=== PATIENT | female | born 1955 | race Caucasian/White ===

== ENCOUNTER 2018-02-09 13:00 | Emergency (ER) | payer BC ==
[2018-02-09 14:17] LABS: ABS Basophils 0 10^3/ul (0-0.2); ABS Eosinophils 0.1 10^3/ul (0-0.6); ABS Lymphocytes 1.3 10^3/ul (1.0-4.8); ABS Monocytes 0.3 10^3/ul (0-0.8); ABS Neutrophils 2.3 10^3/ul (1.5-7.7); ABS Nucleated RBC 0 10^3/ul; Eosinophil % 2.2 % (0-6); Hematocrit 41 % (35-47); Hemoglobin 13.7 g/dl (12.0-16.0); Lymphocyte % 31.7 % (25-47); Mean Corpuscular HGB Conc 34 g/dl (31-36); Mean Corpuscular Hemoglobin 29 pg (27-31); Mean Corpuscular Volume 86 fL (80-97); Mean Platelet Volume 9 um3 (7.4-10.4); Nucleated Red Blood Cells % 0.1; Platelet Count 249 10^3/ul (150-450); Red Blood Count 4.75 10^6/ul (4.0-5.4); Red Cell Distribution Width 14 % (10.5-15); White Blood Count 3.9 10^3/ul (3.5-10.8)
[2018-02-09 14:42] LABS: EGFR Non-African American 83.7 (>60)
[2018-02-09 15:23] LABS: Urine Appearance Clear; Urine Blood Negative (Negative); Urine Color Yellow; Urine Ketones Trace (Negative); Urine Protein Negative (Negative); Urine Specific Gravity 1.017 (1.010-1.030); Urine Urobilinogen Negative (Negative)
[2018-02-09] MEDS ORDERED: Iohexol 300* (CONTRAST) 10 ML SDV IV ONE (17:06)
--- NOTE | 2018-02-09 18:06 | RAD ---
INDICATION: Lower abdominal pain COMPARISON: CT abdomen and pelvis August 12, 2005 TECHNIQUE: Axial source images were obtained from the hemidiaphragms to the symphysis pubis following administration of oral and intravenous contrast. 89 mL Omnipaque 300 was utilized. Coronal and sagittal reconstructed images were acquired. Lung bases: The lung bases are clear. Liver: The liver is normal in size. There are no masses. There is no ductal dilatation. Gallbladder: There are no calcified gallstones. There is no evidence of wall thickening or pericholecystic fluid. Spleen: The spleen is normal in size. There are no masses. There is a splenule, unchanged Pancreas: There is no focal pancreatic mass or ductal dilatation. Adrenal glands: There is no evidence of adrenal mass. Kidneys: The kidneys are normal in size and position. There are prompt nephrograms and there is prompt excretion bilaterally. There are no renal parenchymal masses. There is no evidence of nephrolithiasis. Adenopathy: There is no evidence of adenopathy by size criteria. Fluid collections: There are no free or localized fluid collections. Vessels:There are no significant atherosclerotic changes involving the aorta. There is no focal aneurysm. The iliac vessels are normal in caliber. The IVC appears normal. GI tract: There is a moderate-sized hiatal hernia. The upper GI tract is otherwise unremarkable. There is stool in the rectal vault. There are no significant colonic findings. No inflammatory changes are appreciated. Pelvic organs: The uterus and adnexa appear normal Bladder: There are no bladder masses. Abdominal and pelvic soft tissues: The extraperitoneal abdominal and pelvic soft tissues appear normal.. Osseous structures: There are no acute osseous findings. Other: None IMPRESSION: MODERATE-SIZED HIATAL HERNIA. NO ACUTE CT FINDINGS. NO MASS OR INFLAMMATORY CHANGES
[2018-02-09 18:41] VITALS: BP 121/65
--- NOTE | 2018-02-14 13:57 | ED ---
Jessica Orlando Edward, scribed for Seng Gonzalez MD on 02/09/18 at 1336 . Abdominal Pain/Female - HPI Summary HPI Summary: 63 y/o female presents to the ED c/o severe ABD pain for several days. Pt c/o severely painful BM and loose and watery stools with mucous without blood starting 5 nights ago, the night of her colonoscopy. The pain is constant and gradually worsening. The pain is located in the lower ABD. Associated sx: urinary sx around 1 week ago, fevers and chills in the evening (up to 102 recently), fatigue. PMHx C-diff - last finished a 6 week abx for cdiff 5 days before her colonoscopy. Pt had a colonoscopy 5 days ago. Pt states her sx are similar to previous episodes of cdiff. - History of Current Complaint Chief Complaint: EDAbdPain Stated Complaint: DIARRHEA/PAINFUL BM Time Seen by Provider: 02/09/18 13:31 Hx Obtained From: Patient Onset/Duration: Lasting Days, Still Present Timing: Constant Pain Intensity: 8 Location: Other - lower ABD Aggravating Factor(s): Other: - bowel movement Alleviating Factor(s): Nothing Associated Signs and Symptoms: Positive: Fever - and chills, Urinary Symptoms, Diarrhea - loose stools, Other: - fatigue Allergies/Adverse Reactions: Allergies Allergy/AdvReac Type Severity Reaction Status Date / Time Penicillins Allergy Mild Rash Verified 02/09/18 14:33 PMH/Surg Hx/FS Hx/Imm Hx Previously Healthy: No Endocrine/Hematology History: Denies: Hx Anticoagulant Therapy, Hx Diabetes Infectious Disease History: No Infectious Disease History: Reports: Hx Clostridium Difficile Denies: Traveled Outside the [place] in Last 30 Days - Family History Known Family History: Positive: Unknown - Social History Substance Use Type: Reports: None Review of Systems Positive: Fever, Chills, Fatigue Negative: Erythema Negative: Sore Throat Negative: Chest Pain Negative: Shortness Of Breath, Cough Positive: Abdominal Pain, Diarrhea. Negative: Vomiting, Nausea Positive: other - urinary symptoms 1 week ago. Negative: dysuria, hematuria Negative: Myalgia, Edema Negative: Rash Neurological: Other - dizziness All Other Systems Reviewed And Are Negative: Yes Physical Exam - Summary Physical Exam Summary: Constitutional: Well-developed, Well-nourished, Alert. (-) Distressed Skin: Warm, Dry HENT: Normocephalic; Atraumatic Eyes: Conjunctiva normal Neck: Musculoskeletal ROM normal neck. (-) JVD, (-) Stridor, (-) Tracheal deviation Cardio: Rhythm regular, rate normal, Heart sounds normal; Intact distal pulses; The pedal pulses are 2+ and symmetric. Radial pulses are 2+ and symmetric. (-) Murmur Pulmonary/Chest wall: Effort normal. (-) Respiratory distress, (-) Wheezes, (-) Rales Abd: Soft, (+) Suprapubic Tenderness, (-) Distension, (-) Guarding, (-) Rebound Musculoskeletal: (-) Edema Lymph: (-) Cervical adenopathy Neuro: Alert, Oriented x3 Psych: Mood and affect Normal Triage Information Reviewed: Yes Vital Signs On Initial Exam: Initial Vitals Temp Pulse Resp BP Pulse Ox 98.3 F 84 17 134/77 97 02/09/18 13:01 02/09/18 13:01 02/09/18 13:01 02/09/18 13:01 02/09/18 13:01 Vital Signs Reviewed: Yes Diagnostics - Vital Signs Vital Signs Temp Pulse Resp BP Pulse Ox 02/09/18 13:01 98.3 F 84 17 134/77 97 - Laboratory Lab Results: Lab Results 02/09/18 02/09/18 02/09/18 Range/Units 13:54 13:54 14:03 WBC 3.9 (3.5-10.8) 10^3/ul RBC 4.75 (4.0-5.4) 10^6/ul Hgb 13.7 (12.0-16.0) g/dl Hct 41 (35-47) % MCV 86 (80-97) fL MCH 29 (27-31) pg MCHC 34 (31-36) g/dl RDW 14 (10.5-15) % Plt Count 249 (150-450) 10^3/ul MPV 9 (7.4-10.4) um3 Neut % (Auto) 57.4 (38-83) % Lymph % (Auto) 31.7 (25-47) % [place] % (Auto) 7.9 H (0-7) % Eos % (Auto) 2.2 (0-6) % Baso % (Auto) 0.8 (0-2) % Absolute Neuts (auto) 2.3 (1.5-7.7) 10^3/ul Absolute Lymphs (auto) 1.3 (1.0-4.8) 10^3/ul Absolute Monos (auto) 0.3 (0-0.8) 10^3/ul Absolute Eos (auto) 0.1 (0-0.6) 10^3/ul Absolute Basos (auto) 0 (0-0.2) 10^3/ul Absolute Nucleated RBC 0 10^3/ul Nucleated RBC % 0.1 Sodium 136 (133-145) mmol/L Potassium 3.5 (3.5-5.0) mmol/L Chloride 103 (101-111) mmol/L Carbon Dioxide 25 (22-32) mmol/L Anion Gap 8 (2-11) mmol/L BUN 6 (6-24) mg/dL Creatinine 0.71 (0.51-0.95) mg/dL Est GFR ( Amer) 107.6 (>60) Est GFR (Non-Af Amer) 83.7 (>60) BUN/Creatinine Ratio 8.5 (8-20) Glucose 86 (70-100) mg/dL Lactic Acid 0.5 (0.5-2.0) mmol/L Calcium 9.6 (8.6-10.3) mg/dL Total Bilirubin 0.60 (0.2-1.0) mg/dL AST 13 (13-39) U/L ALT 10 (7-52) U/L Alkaline Phosphatase 80 (34-104) U/L C-Reactive Protein 11.57 H (< 5.00) mg/L Total Protein 7.3 (6.4-8.9) g/dL Albumin 4.1 (3.2-5.2) g/dL Globulin 3.2 (2-4) g/dL Albumin/Globulin Ratio 1.3 (1-3) Lipase < 10 L (11.0-82.0) U/L Urine Color Urine Appearance Urine pH (5-9) Ur Specific [place] (1.010-1.030) Urine Protein (Negative) Urine Ketones (Negative) Urine Blood (Negative) Urine Nitrate (Negative) Urine Bilirubin (Negative) Urine Urobilinogen (Negative) Ur Leukocyte Esterase (Negative) Urine Glucose (Negative) Urine Ascorbic Acid (Negative) 02/09/18 Range/Units 15:05 WBC (3.5-10.8) 10^3/ul RBC (4.0-5.4) 10^6/ul Hgb (12.0-16.0) g/dl Hct (35-47) % MCV (80-97) fL MCH (27-31) pg MCHC (31-36) g/dl RDW (10.5-15) % Plt Count (150-450) 10^3/ul MPV (7.4-10.4) um3 Neut % (Auto) (38-83) % Lymph % (Auto) (25-47) % [place] % (Auto) (0-7) % Eos % (Auto) (0-6) % Baso % (Auto) (0-2) % Absolute Neuts (auto) (1.5-7.7) 10^3/ul Absolute Lymphs (auto) (1.0-4.8) 10^3/ul Absolute Monos (auto) (0-0.8) 10^3/ul Absolute Eos (auto) (0-0.6) 10^3/ul Absolute Basos (auto) (0-0.2) 10^3/ul Absolute Nucleated RBC 10^3/ul Nucleated RBC % Sodium (133-145) mmol/L Potassium (3.5-5.0) mmol/L Chloride (101-111) mmol/L Carbon Dioxide (22-32) mmol/L Anion Gap (2-11) mmol/L BUN (6-24) mg/dL Creatinine (0.51-0.95) mg/dL Est GFR ( Amer) (>60) Est GFR (Non-Af Amer) (>60) BUN/Creatinine Ratio (8-20) Glucose (70-100) mg/dL Lactic Acid (0.5-2.0) mmol/L Calcium (8.6-10.3) mg/dL Total Bilirubin (0.2-1.0) mg/dL AST (13-39) U/L ALT (7-52) U/L Alkaline Phosphatase (34-104) U/L C-Reactive Protein (< 5.00) mg/L Total Protein (6.4-8.9) g/dL Albumin (3.2-5.2) g/dL Globulin (2-4) g/dL Albumin/Globulin Ratio (1-3) Lipase (11.0-82.0) U/L Urine Color Yellow Urine Appearance Clear Urine pH 5.0 (5-9) Ur Specific [place] 1.017 (1.010-1.030) Urine Protein Negative (Negative) Urine Ketones Trace A (Negative) Urine Blood Negative (Negative) Urine Nitrate Negative (Negative) Urine Bilirubin Negative (Negative) Urine Urobilinogen Negative (Negative) Ur Leukocyte Esterase Negative (Negative) Urine Glucose Negative (Negative) Urine Ascorbic Acid * A (Negative) Result Diagrams: 02/09/18 13:54 02/09/18 13:54 Lab Statement: Any lab studies that have been ordered have been reviewed, and results considered in the medical decision making process. - CT ABD/PEL CT CT Interpretation: Positive (See Comments) - MODERATE-SIZED HIATAL HERNIA. NO ACUTE CT FINDINGS. NO MASS OR INFLAMMATORY CHANGES CT Interpretation Completed By: Radiologist - ED PHYSICIAN REVIEWS AND AGREES Re-Evaluation - Re-Evaluation 1 Re-Evaluation Time: 17:18 Comment: Discuss bloodwork, reassess pt 2 Re-Evaluation Time: 17:25 Comment: Reassess pt, pt has mild suprapubic tenderness Abdominal Pain Fem Course/Dx - Course Course Of Treatment: 63 y/o female presents to the ED c/o severe ABD pain for several days. Pt c/o severely painful BM and loose and watery stools with mucous without blood starting 5 nights ago, the night of her colonoscopy. The pain is constant and gradually worsening. The pain is located in the lower ABD. Associated sx: urinary sx around 1 week ago, fevers and chills in the evening ( up to 102 recently), fatigue. PMHx C-diff - last finished a 6 week abx for cdiff 5 days before her colonoscopy. Pt had a colonoscopy 5 days ago. Pt states her sx are similar to previous episodes of cdiff. ABD PEL CT SHOWS MODERATE- SIZED HIATAL HERNIA. NO ACUTE CT FINDINGS. NO MASS OR INFLAMMATORY CHANGES. PT is unable to produce a stool sample for testing of C-diff. The pt has not had diarrhea since she arrived to the ED. Pt is nontoxic appearing. There is no bowel perforation related to her colonoscopy. Pt will be d/c home with f/u with PCP in 2-3 days. - Diagnoses Provider Diagnoses: Diarrhea, Abdominal pain Discharge - Sign-Out/Discharge Documenting (check all that apply): Discharge - dc - Discharge Plan Condition: Stable Disposition: HOME Patient Education Materials: Acute Diarrhea (ED), Abdominal Pain (ED) Referrals: Dora Ceron MD [Primary Care Provider] - 3 Days (PLEASE F/U IN 2-3 DAYS) Additional Instructions: RETURN TO THE ED FOR CHANGING OR WORSENING OF SYMPTOMS - Billing Disposition and Condition Condition: STABLE Disposition: HOME The documentation as recorded by the Jessica schafer Edward accurately reflects the service I personally performed and the decisions made by Lisa hurtado Jerry, MD.
== END 2018-02-09 18:40 | disposition home or self-care (01) ==
LOC: ED 13:00
DX: R19.7 Diarrhea, unspecified (principal); R10.9 Unspecified abdominal pain; R50.9 Fever, unspecified; R53.83 Other fatigue
CPT/HCPCS: 36415; 74177; 80053; 81003; 83605; 83690; 85025; 86140; 87040; 99282; Q9967

== ENCOUNTER 2020-01-31 13:56 | Emergency (ER) | payer BC, OTHER ==
--- NOTE | 2020-01-31 14:50 | ED ---
Dizziness - HPI Summary HPI Summary: 65 yo WF p/w dizziness around 11:30am, felt like the room was spinning associated w/ n/v, subsided around 1 pm. Denies CP, SOB, recent illnesses, ear infections, weakness - History Of Current Complaint Chief Complaint: UCDizziness Stated Complaint: EXTREME DIZZINESS, VOMITTING Time Seen by Provider: 01/31/20 14:08 Hx Obtained From: Patient Onset/Duration: Unknown, Still Present Timing: Constant Severity Initially: Moderate Severity Currently: Moderate Character: Head Spinning, Room Spinning, Lightheaded, Dizzy Aggravating Factor(s): Nothing Alleviating Factor(s): Nothing Associated Signs And Symptoms: Positive: Nausea - Risk Factors Cardiac Risk Factors: Negative CVA Risk Factor: Negative - Allergies/Home Medications Allergies/Adverse Reactions: Allergies Allergy/AdvReac Type Severity Reaction Status Date / Time Penicillins Allergy Mild Rash Verified 02/09/18 14:33 aspirin AdvReac Nausea And Verified 01/31/20 14:11 Vomiting Home Medications: Home Medications Escitalopram Oxalate [Lexapro 10 mg] 10 mg PO DAILY 01/31/20 [History Confirmed 01/31/20] Meclizine TAB* [Antivert 12.5 TAB*] 12.5 mg PO TID PRN 10 Days #30 tab 01/31/20 [Rx] PMH/Surg Hx/FS Hx/Imm Hx Previously Healthy: Yes Endocrine/Hematology History: Denies: Hx Anticoagulant Therapy, Hx Diabetes, Hx Thyroid Disease Cardiovascular History: Denies: Hx Hypertension Respiratory History: Reports: Hx Asthma Denies: Hx Chronic Obstructive Pulmonary Disease (COPD) GI History: Denies: Hx Ulcer - Surgical History Surgery Procedure, Year, and Place: hiatal hernia repair Infectious Disease History: Yes Infectious Disease History: Reports: Hx Clostridium Difficile Denies: Hx Hepatitis, Hx Human Immunodeficiency Virus (HIV), Traveled Outside the [place] in Last 30 Days - Family History Known Family History: Positive: Unknown - Social History Alcohol Use: None Substance Use Type: Reports: None Smoking Status (MU): Former Smoker Review of Systems All Other Systems Reviewed And Are Negative: Yes Physical Exam - Summary Physical Exam Summary: Vital Signs Reviewed: Yes Eye Exam: Normal Eyes: Positive: Conjunctiva Clear ENT: Positive: Normal ENT inspection Neck: Positive: Supple Respiratory Exam: Normal Respiratory: Positive: Lungs clear, Normal breath sounds. Negative: Crackles, Rhonchi, Stridor, Wheezing Cardiovascular Exam: Normal, RRR, S1, S2 Abdomen: NT/ND Musculoskeletal Exam: Normal Neurological Exam: CN 2-12 WNL, Neg focal deficits, NEG sensory and motor deficits Psychological Exam: Normal Skin Exam: Normal Vital Signs On Initial Exam: Initial Vitals Temp Pulse Resp BP Pulse Ox 36.2 C 55 16 132/67 96 01/31/20 14:02 01/31/20 14:02 01/31/20 14:02 01/31/20 14:02 01/31/20 14:02 Diagnostics - Vital Signs Vital Signs Temp Pulse Resp BP Pulse Ox 01/31/20 14:40 65 106/62 01/31/20 14:02 36.2 C 55 16 132/67 96 - Laboratory Lab Statement: Any lab studies that have been ordered have been reviewed, and results considered in the medical decision making process. Dizzy Course/Dx - Course Assessment/Plan: CT maxillofacial and CT head NEG for sinus, middle ear pathology or masses. advised pt to f/u with neurology for further w/u for BPV - Diagnoses Provider Diagnoses: Dizziness, nonspecific Discharge ED - Sign-Out/Discharge Documenting (check all that apply): Patient Departure All imaging exams completed and their final reports reviewed: Yes - Discharge Plan Condition: Stable Disposition: HOME Prescriptions: Meclizine TAB* [Antivert 12.5 TAB*] 12.5 mg PO TID PRN 10 Days #30 tab PRN Reason: Dizziness Patient Education Materials: Vertigo (ED) Referrals: Dora Ceron MD [Primary Care Provider] - - Billing Disposition and Condition Condition: STABLE Disposition: Home
[2020-01-31] MEDS ORDERED: Meclizine TAB* 12.5 MG PO ONE (15:45)
[2020-01-31] MEDS ORDERED: NS 0.9% 1000 ML** 1,000 ML IV ONE (15:45)
[2020-01-31 17:05] VITALS: BP 120/74
== END 2020-01-31 17:00 | disposition home or self-care (01) ==
LOC: UCEAST 13:56
DX: R42 Dizziness and giddiness (principal); Z88.0 Allergy status to penicillin; Z88.6 Allergy status to analgesic agent; Z87.891 Personal history of nicotine dependence
CPT/HCPCS: 70450; 70486; 93005; 99213; A9270-GY; G0463